=== PATIENT | male | born 1975 | race African-American/Black ===

== ENCOUNTER 2023-12-18 22:01 | Emergency (ER) | payer SELFPAY ==
[2023-12-19 00:07] LABS: Absolute Eosinophils 0.3 K/uL (0-0.5); Absolute Lymphocytes (CBC) 2.1 K/uL (0.7-4.9); Absolute Monocytes 0.4 K/uL (0.1-1.3); Absolute Neutrophil 1.2 K/uL (1.8-8.0); Basophils % 0.5 % (0-1.3); Eosinophils % 7.4 % (0-4.4); Hematocrit 38.8 % (39.6-49.0); Hemoglobin 12.9 g/dL (13.6-17.9); Lymphocytes % 51.3 % (15.3-44.8); MCH 31.7 pg (27.0-35.0); MCHC 33.3 g/dL (32.0-36.0); MCV 95.2 fL (80-100); MPV 8.1 fL (7.6-11.3); Monocytes % 10.3 % (3.3-12.3); Neutrophils % 30.5 % (41.7-73.7); Nucleated Red Blood Cells % 0.5 % (0-0); Platelets 224 thou/uL (152-406); RBC Red Blood Cell Count 4.07 M/uL (4.33-5.43); Red Cell Distribution Width 14.3 % (12.1-15.2)
[2023-12-19 00:17] LABS: Anion Gap 6.6 mEq/L (5.0-15.0); Potassium 3.6 mEq/L (3.5-5.1)
[2023-12-19 00:25] LABS: Troponin High Sensitivity 63.9 pg/mL (<58.9)
[2023-12-19] MEDS ORDERED: ASPIRIN 81 MG CHEWABLE TABLET ONE (00:46)
--- NOTE | 2023-12-19 03:16 | ER ---
Nurse's Notes [facility] Name: Beto Solitario Age: 48 yrs Sex: Male : 1975 Arrival Date: 12/18/2023 Time: 22:01 Bed 11 Private MD: Diagnosis: Chest pain, unspecified Presentation: 12/17 22:24 Chief complaint: Patient states: I started having chest pressure about 2 hours ago. It jb4 is a pressure that is constant and is a 6/10. Coronavirus screen: At this time, the client does not indicate any symptoms associated with coronavirus-19. Ebola Screen: No symptoms or risks identified at this time. Initial Sepsis Screen: Does the patient meet any 2 criteria? No. Patient's initial sepsis screen is negative. Does the patient have a suspected source of infection? No. Patient's initial sepsis screen is negative. Risk Assessment: Do you want to hurt yourself or someone else? Patient reports no desire to harm self or others. Onset of symptoms was December 18, 2023. Transition of care: patient was not received from another setting of care. 22:24 Method Of Arrival: Ambulatory jb4 22:24 Acuity: MACKENZIE 2 jb4 Triage Assessment: 22:26 General: Appears in no apparent distress. comfortable, Behavior is calm, cooperative, jb4 appropriate for age. Pain: Complains of pain in chest Pain does not radiate. Pain currently is 6 out of 10 on a pain scale. Quality of pain is described as pressure, Pain began 2 hours ago. EENT: No signs and/or symptoms were reported regarding the EENT system. Neuro: Level of Consciousness is awake, alert, obeys commands, Oriented to person, place, time, situation. Cardiovascular: Patient's skin is warm and dry. Respiratory: Airway is patent Respiratory effort is even, unlabored, Respiratory pattern is regular, symmetrical. GI: No signs and/or symptoms were reported involving the gastrointestinal system. : No signs and/or symptoms were reported regarding the genitourinary system. Derm: Skin is intact, Skin is pink, warm \T\ dry. Musculoskeletal: Circulation, motion, and sensation intact. Range of motion: intact in all extremities. Historical: - Allergies: 22:26 PCN; jb4 22:26 Sulfa (Sulfonamide Antibiotics); jb4 - PMHx: 22:26 HTN; Sulfa; jb4 - Immunization history:: Adult Immunizations not immunized. - Infectious Disease History:: Denies. - Social history:: Smoking status: Patient denies any tobacco usage or history of. Screenin/31 03:40 [facility] ED Fall Risk Assessment (Adult) History of falling in the last 3 months, jb4 including since admission No falls in past 3 months (0 pts) Confusion or Disorientation No (0 pts) Intoxicated or Sedated No (0 pts) Impaired Gait No (0 pts) Mobility Assist Device Used No (0 pt) Altered Elimination No (0 pt) Score/Fall Risk Level 0 - 2 = Low Risk Oriented to surroundings, Maintained a safe environment. Abuse screen: Denies threats or abuse. Nutritional screening: No deficits noted. Tuberculosis screening: No symptoms or risk factors identified. Assessment: 00:00 Reassessment: Patient appears in no apparent distress at this time. Patient and/or jb4 family updated on plan of care and expected duration. Pain level reassessed. Patient is alert, oriented x 3, equal unlabored respirations, skin warm/dry/pink. 01:00 Reassessment: Patient appears in no apparent distress at this time. Patient and/or jb4 family updated on plan of care and expected duration. Pain level reassessed. Patient is alert, oriented x 3, equal unlabored respirations, skin warm/dry/pink. 02:00 Reassessment: Patient appears in no apparent distress at this time. Patient and/or jb4 family updated on plan of care and expected duration. Pain level reassessed. Patient is alert, oriented x 3, equal unlabored respirations, skin warm/dry/pink. 03:14 Reassessment: Patient appears in no apparent distress at this time. Patient and/or jb4 family updated on plan of care and expected duration. Pain level reassessed. Patient is alert, oriented x 3, equal unlabored respirations, skin warm/dry/pink. Vital Signs: 12/17 22:24 BP 133 / 73; Pulse 77; Resp 16; Temp 98.7(O); Pulse Ox 100% on R/A; Weight 90.72 kg; jb4 Height 6 ft. 0 in. ; Pain 6/10; 12/18 00:20 BP 134 / 84; Pulse 70; Resp 16; Pulse Ox 100% on R/A; jb4 01:00 BP 121 / 79; Pulse 71; Resp 16; Pulse Ox 100% on R/A; jb4 02:00 BP 110 / 62; Pulse 72; Resp 16; Pulse Ox 100% on R/A; jb4 12/17 22:24 Body Mass Index 27.12 (90.72 kg, 182.88 cm) jb4 12/17 22:24 Pain Scale: Adult jb4 ED Course: 12/17 22:09 Patient arrived in ED. jb4 22:13 Melvin Tidwell MD is Attending Physician. ec2 22:26 Triage completed. jb4 22: Arm band placed on right wrist. jb4 22:50 EKG done, by ED staff, reviewed by Melvin Tidwell MD. oe 23:00 Client placed on continuous cardiac and pulse oximetry monitoring. NIBP monitoring jb4 applied. 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 Pulse ox on. 23:00 No provider procedures requiring assistance completed. IV discontinued, intact, jb4 bleeding controlled, No redness/swelling at site. Patient maintains SpO2 saturation greater than 95% on room air. 23:11 XRAY Chest (1 view) In Process Unspecified. EDMS 12/18 03:14 Aniket Orlando, RN is Primary Nurse. jb4 03:40 Patient has correct armband on for positive identification. Call light in reach. Side jb4 rails up X 1. Provided Education on: discharge instrucitons.. Administered Medications: 00:50 Drug: Aspirin PO Chewable Tablet 324 mg PO once; 81 mg tablets x 4 Route: PO; jb4 Outcome: 03:15 Discharge ordered by MD. ec2 03:41 Discharged to home ambulatory, jb4 03:41 Condition: stable 03:41 Discharge instructions given to patient, Instructed on discharge instructions, follow up and referral plans. Demonstrated understanding of instructions, follow-up care, 03:41 Patient left the ED. jb4 Signatures: Dispatcher [employer] [facility] Aniket Orlando, RN RN jb4 Garo Robles Edwin, MD MD ec2 Corrections: (The following items were deleted from the chart) 12/17 22:26 22:26 Allergies: No Known Allergies; jb4 jb4 27 22:26 Immunization history: Adult Immunizations up to date, jb4 jb4 23:06 23:04 EKG done, by ED staff, oe oe
--- NOTE | 2023-12-19 03:16 | EDPHYS ---
Physician Documentation [facility] Name: Beto Solitario Age: 48 yrs Sex: Male : 1975 Arrival Date: 12/18/2023 Time: 22:01 Bed 11 Private MD: ED Physician Melvin Tidwell HPI: 12/17 22:21 This 48 yrs old Male presents to ER via Unassigned with complaints of Chest Pressure. ec2 22:21 Patient arrives today for chest pressure. Patient reports she been having chest pain ec2 throughout the day. Patient reports no specific alleviating or exacerbating factors. Patient reports history of hypertension, hyperlipidemia, no diabetes. Denies any history of ACS.. Historical: - Allergies: 22:26 PCN; jb4 22:26 Sulfa (Sulfonamide Antibiotics); jb4 - PMHx: 22:26 HTN; Sulfa; jb4 - Immunization history:: Adult Immunizations not immunized. - Infectious Disease History:: Denies. - Social history:: Smoking status: Patient denies any tobacco usage or history of. ROS: 22:21 Constitutional: as per hpi ec2 Exam: 22:21 Constitutional: GEN: NAD Head: atraumatic Eyes: EOMI Ears: External ears are ec2 normal. CV: regular rate LUNGS: no respiratory distress ABD: non-distended SKIN: no evidence of rashes MSK: no evidence of trauma NEURO: moves all extremities equally Vital Signs: 22:24 BP 133 / 73; Pulse 77; Resp 16; Temp 98.7(O); Pulse Ox 100% on R/A; Weight 90.72 kg; jb4 Height 6 ft. 0 in. ; Pain 6/10; 12/18 00:20 BP 134 / 84; Pulse 70; Resp 16; Pulse Ox 100% on R/A; jb4 01:00 BP 121 / 79; Pulse 71; Resp 16; Pulse Ox 100% on R/A; jb4 02:00 BP 110 / 62; Pulse 72; Resp 16; Pulse Ox 100% on R/A; jb4 12/17 22:24 Body Mass Index 27.12 (90.72 kg, 182.88 cm) jb4 12/17 22:24 Pain Scale: Adult jb4 MDM: 12/17 22:14 Patient medically screened. ec2 22:21 Data reviewed: vital signs. ED course: Patient arrives today for evaluation of chest ec2 pressure. Examination remarkable for well-appearing nontoxic individual is otherwise in no acute distress. EKG independently reviewed and interpreted by me, shows normal sinus rhythm, rate of 77, no acute ST segment elevations, intervals are nonconcerning. Will obtain chest x-ray, lab work. Differential includes ACS, pleurisy, infection, doubt PE.. 12/18 00:34 ED course: Metabolic profile reassuring. CBC reassuring slight anemia noted. Troponin ec2 elevated at 63.9. Will obtain repeat EKG and troponin. . 00:59 ED course: Chest x-ray shows no acute intrathoracic process. Will obtain repeat EKG and ec2 troponin due to slight elevation initial troponin.. 02:31 ED course: Repeat EKG independently reviewed and interpreted by me, shows normal sinus ec2 rhythm, rate of 78, no acute ST segment elevations, normal nonconcerning. No significant change compared to initial.. 03:15 ED course: Repeat EKG is static. Will discharge home have the patient follow-up primary ec2 care.. 12/17 22:14 Order name: Basic Metabolic Panel; Complete Time: 00:33 ec2 12/17 22:14 Order name: CBC with Diff; Complete Time: 00:33 ec2 12/17 22:14 Order name: Troponin HS; Complete Time: 00:33 ec2 12/18 02:41 Order name: Troponin High Sensitivity; Complete Time: 03:15 EDMS 12/17 22:14 Order name: XRAY Chest (1 view) ec2 12/17 22:14 Order name: EKG; Complete Time: 22:14 ec2 12/17 22:14 Order name: Cardiac monitoring; Complete Time: 23:35 ec2 12/17 22:14 Order name: EKG - Nurse/Tech; Complete Time: 23:35 ec2 12/17 22:14 Order name: IV Saline Lock; Complete Time: 23:35 ec2 12/17 22:14 Order name: Labs collected and sent; Complete Time: 23:35 ec2 12/17 22:14 Order name: O2 Per Protocol; Complete Time: 23:35 ec2 12/17 22:14 Order name: O2 Sat Monitoring; Complete Time: 23:35 ec2 12/18 00:34 Order name: Misc. Order: repeat ekg/trop at 0200; Complete Time: 02:43 ec2 Administered Medications: 00:50 Drug: Aspirin PO Chewable Tablet 324 mg PO once; 81 mg tablets x 4 Route: PO; jb4 Disposition Summary: 12/19/23 03:15 Discharge Ordered Notes: Location: Home ec2 Condition: Stable ec2 Diagnosis - Chest pain, unspecified ec2 Followup: ec2 - With: Private Physician - When: - Reason: Re-evaluation by your physician Discharge Instructions: - Discharge Summary Sheet ec2 - Nonspecific Chest Pain, Adult, Pace-us-Gigx ec2 Forms: - Medication Reconciliation Form ec2 - Antibiotic Education ec2 - Prescription Opioid Use ec2 - Patient Portal Instructions ec2 - Leadership Thank You Letter ec2 Signatures: Dispatcher [employer] Aniket Hernandez RN RN jb4 Melvin Tidwell MD MD ec2 Corrections: (The following items were deleted from the chart) 12/17 22:14 22:14 BASIC METABOLIC PANEL+C.LAB.BRZ ordered. EDMS EDMS 22:14 22:14 CBC+H.LAB.BRZ ordered. EDMS EDMS 22:14 22:14 Troponin High Sensitivity+C.LAB.BRZ ordered. EDMS EDMS 22:26 22:26 Allergies: No Known Allergies; [facility] jb4 22:27 22:26 Immunization history: Adult Immunizations up to date, jb4 jb4 12/18 02:54 02:39 Troponin High Sensitivity+C.LAB.BRZ ordered. EDMS EDMS
--- NOTE | 2023-12-19 11:41 | EKG ---
Test Date: 2023-12-19 Test Time: 02:21:40 Senior Network Systems Engineer: FERDINAND MEASUREMENT RESULTS: Intervals: Rate: 78 IA: 154 QRSD: 78 QT: 374 QTc: 426 [place]: P: 84 IA: 154 QRS: 81 T: 49 INTERPRETIVE STATEMENTS: Normal sinus rhythm Normal ECG No previous ECG available for comparison Electronically Signed On 12-19-23 11:40:46 CDT by Drew Arango
--- NOTE | 2023-12-19 11:42 | EKG ---
Test Date: 2023-12-18 Test Time: 22:17:02 Cath Lab Radiology Technician: FERDINAND MEASUREMENT RESULTS: Intervals: Rate: 77 DE: 146 QRSD: 80 QT: 378 QTc: 427 [place]: P: 72 DE: 146 QRS: 78 T: 35 INTERPRETIVE STATEMENTS: Normal sinus rhythm Normal ECG No previous ECG available for comparison Electronically Signed On 12-19-23 11:41:14 CDT by Drew Arango
[2023-12-19 12:03] VITALS: TEMP 98.7; O2SAT 100
[2023-12-19 12:07] VITALS: BP 110/62
--- NOTE | 2023-12-19 23:11 | RAD REPORT ---
EXAM DESCRIPTION: RAD - Chest Single View - 12/18/2023 11:09 pm CLINICAL HISTORY: 8 years Male, Chest pain. COMPARISON: None. IMPRESSION: No focal lung consolidation. No pleural effusion. No pneumothorax. Cardiomediastinal silhouette is within normal limits. No acute osseous abnormality. Electronically signed by: Miller Espinosa DO 12/18/2023 11:39 PM CDT RP 9 Due to temporary technical issues with the PACS/Fluency reporting system, reports are being signed by the in house radiologists without review as a courtesy to insure prompt reporting. The interpreting radiologist is fully responsible for the content of the report.
== END 2023-12-19 03:41 | disposition home or self-care (01) ==
LOC: ER 22:01
DX: R07.89 Other chest pain (principal)
CPT/HCPCS: 36415; 71045; 80048; 84484; 85025; 93005; 99284